=== PATIENT | male | born 1985 | race Hispanic/Latino ===

== ENCOUNTER 2017-05-20 22:14 | Emergency (ER) | payer SELFPAY ==
[2017-05-20 22:14] VITALS: BMI 24.3
[2017-05-20 22:28] VITALS: RESP 18
--- NOTE | 2017-05-20 22:46 | C.PDOC ---
History Of Present Illness pt was brought in by police for public intoxication. Pt denies any suicidal or homicidal ideation . Has been drinking at a bar and refused to pay bill Time Seen by Provider: 05/20/17 22:44 Chief Complaint (Nursing): Substance Abuse Past Medical History Reviewed: Historical Data, Nursing Documentation, Vital Signs Vital Signs: Last Vital Signs Temp 98.1 F 05/20/17 22:27 Pulse 121 H 05/20/17 22:27 Resp 18 05/20/17 22:27 BP 143/90 05/20/17 22:27 Pulse Ox 93 L 05/20/17 23:03 Family History: States: No Known Family Hx - Social History Hx Alcohol Use: Yes Hx Substance Use: No - Immunization History Hx Tetanus Toxoid Vaccination: No Hx Influenza Vaccination: No Hx Pneumococcal Vaccination: No Review Of Systems Constitutional: Negative for: Fever, Chills Cardiovascular: Negative for: Chest Pain Respiratory: Negative for: Shortness of Breath Gastrointestinal: Negative for: Nausea, Vomiting, Abdominal Pain Musculoskeletal: Negative for: Back Pain Skin: Negative for: Rash Neurological: Negative for: Weakness Psych: Negative for: Anxiety, Depression Physical Exam - Physical Exam Appears: Non-toxic, No Acute Distress Skin: Warm, Dry Head: Normacephalic Eye(s): bilateral: Normal Inspection Neck: Supple Chest: Symmetrical Respiratory: No Rales, No Rhonchi, No Wheezing Gastrointestinal/Abdominal: Soft, No Tenderness Extremity: Normal ROM Extremity: Bilateral: Atraumatic Neurological/Psych: Oriented x3 Gait: Unsteady ED Course And Treatment O2 Sat by Pulse Oximetry: 93 Pulse Ox Interpretation: Normal Progress Note: patient's parents came to pick his up., they undertand that they assume the responsibility for his well being, athey agreed and signed the discharge papers. Patient ambulating withou difficulty. is [email or web address] Disposition Counseled Patient/Family Regarding: Studies Performed, Diagnosis, Need For Followup - Disposition Referrals: [facility] [Outside] Disposition: HOME/ ROUTINE Disposition Time: 22:45 Condition: FAIR Instructions: Alcohol Intoxication (DC) Forms: [facility] [facility] (Vincentian) - Clinical Impression Clinical Impression: Alcohol intoxication
[2017-05-20 23:35] VITALS: BP 112/74; PULSE 100; TEMP 98.7; O2SAT 98
== END 2017-05-20 23:35 | disposition home or self-care (01) ==
LOC: C.ER 22:14
DX: F10.129 Alcohol abuse with intoxication, unspecified (principal); Y90.9 Presence of alcohol in blood, level not specified